=== PATIENT | female | born 1960 | race Caucasian/White ===

== ENCOUNTER → 2016-11-22 | Outpatient (CLI) | payer MEDICARE, OTHER ==
[2016-11-22 16:11] LABS: Blood Urea Nitrogen 25 mg/dL (7-17); Non-African American GFR(MDRD) >60 (>60 ml/min/1.73 sqM)
--- NOTE | 2016-11-22 18:56 | CT ---
EXAMINATION TYPE: CT abdomen pelvis w con DATE OF EXAM: 11/22/2016 5:30 PM COMPARISON: NONE HISTORY: PT STATES OF HERNIA AT INCISION SITE ON LOWER ABD. CT DLP: 1842.2 mGycm Automated exposure control for dose reduction was used. TECHNIQUE: Helical acquisition of images was performed from the lung bases through the pelvis. CONTRAST: Performed with Oral Contrast and with IV Contrast, patient injected with 100 mL of Omnipaque 300. FINDINGS: Lung bases are clear of consolidation. There is no pleural effusion. There is a small hiatal hernia. Liver spleen pancreas appear normal. There are clips from cholecystectomy. There is no adrenal mass. Kidneys show satisfactory contrast opacification. There is no hydronephrosis. There is no retroperito kala adenopathy. Abdominal aorta is atheromatous. There is no ascites. There is a 14 x 15 cm subcutaneous fluid collection over the lower anterior abdomen in the midline. T he fluid has low density. There is mild adjacent thickening of the anterior abdominal wall. Bladder distends smoothly. There is no sign of a pelvic mass. There is no evidence of a bowel obstruc tion. I see no intestinal wall thickening. There are no dilated loops. The bony structures are intact . IMPRESSION: THERE IS A LARGE SUBCUTANEOUS LOW-DENSITY FLUID COLLECTION THAT IS SUPERFICIAL TO THE ANTERIOR ABDOMI NAL WALL AND CONSISTENT WITH A SEROMA OR CHRONIC HEMATOMA. THERE IS MILD THICKENING OF THE ADJACENT A NTERIOR ABDOMINAL WALL CONSISTENT WITH POSTSURGICAL CHANGES. NO EVIDENCE OF A BOWEL OBSTRUCTION OR HE RNIA SAC.
== END | disposition home or self-care (01) ==
LOC: RADCTMAIN 15:20
PROVIDERS: ATTEND Surgery
DX: K31.89 Other diseases of stomach and duodenum (principal)
CPT/HCPCS: 82565; 84520; 74177; 36415; Q9967

== ENCOUNTER → 2017-02-26 | Outpatient (CLI) | payer MEDICARE, OTHER ==
[2017-02-26 17:13] LABS: Blood Urea Nitrogen 23 mg/dL (7-17); Non-African American GFR(MDRD) >60 (>60 ml/min/1.73 sqM)
--- NOTE | 2017-02-27 08:28 | CT ---
EXAMINATION TYPE: CT abdomen pelvis w con DATE OF EXAM: 02/26/2017 6:34 PM HISTORY: RLQ pain for 2 days. Postop seroma generalized abdominal pain per order. CT DLP: 1911.1mGycm Automated Exposure Control for Dose Reduction was Utilized. CONTRAST: CT scan of the abdomen and pelvis is performed with IV Contrast, patient injected with 100 mL of Omni paque 300. COMPARISON: CT abdomen and pelvis November 22, 2016. FINDINGS: LUNG BASES: Dense mitral annulus or valvular calcifications are redemonstrated. Calcifications in the dominant RCA distribution are again seen. LIVER/GB: Cholecystectomy clips are redemonstrated. Liver remains diffusely low dense consistent wit h fatty infiltration. PANCREAS: No significant abnormality is seen. SPLEEN: No significant abnormality is seen. ADRENALS: No significant abnormality is seen. KIDNEYS: No significant abnormality is seen. BOWEL: The oral contrast reaches level of the transverse colon. There is no suspicious small or large bowel dilatation. UTERUS/ADNEXA: Uterus is surgically absent or markedly atrophic in appearance. Multiple surgical clip s and phleboliths in the pelvis are redemonstrated. LYMPH NODES: No greater than 1cm abdominal or pelvic lymph nodes are appreciated. OSSEOUS STRUCTURES: Multilevel spurring in the lower thoracic spine is present. OTHER: There is mild to moderate calcified plaque of the abdominal aorta and iliac branch vessels. In the pelvic abdominal wall there remains nonspecific walled off fluid collection. This collection m easures 7.3 cm AP by 13.5 cm transverse by 14.0 cm craniocaudal dimension on axial image 73 and coron al image 20, it measured 9.7 x 14.2 x 15.4 cm on prior exam axial image 76 and coronal image 18. IMPRESSION: Persistent nonspecific moderate to large size anterior lower abdominal/pelvic wall subcut aneous fluid collection slightly diminished in size from prior exam favor postsurgical seroma remains present.
== END ==
LOC: RADCTMAIN 16:34
PROVIDERS: ATTEND Surgery
DX: R10.84 Generalized abdominal pain (principal); T88.8XXD Other specified complications of surgical and medical care, not elsewhere classified, subsequent encounter
CPT/HCPCS: 82565; 84520; 74177; 36415; Q9967

== ENCOUNTER 2017-03-04 10:52 | Day surgery (SDC) | payer MEDICARE, OTHER ==
[2017-03-04 11:21] VITALS: RESP 18; TEMP 97.9
[2017-03-04 12:53] VITALS: BP 140/67; PULSE 94
--- NOTE | 2017-03-04 15:00 | US ---
Discontinued seroma drainage tube placement HISTORY: Seroma Real-time ultrasound performed at the level of patient's symptomatology in the lower anterior abdomin al region. There is a focus in the subcutaneous fat measuring 13.7 cm and shows multiple loculated ar eas compatible with organized seroma. IMPRESSION: Patient is unlikely to benefit from drainage tube placement. Multilocular fluid collectio n is noted. No seroma drainage tube placement at this time.
== END 2017-03-04 12:45 | disposition home or self-care (01) ==
LOC: RADPROMAIN 10:52 → EDSTATUS 11:00 → RADPROMAIN 12:45
PROVIDERS: ATTEND Surgery
DX: T88.8XXA Other specified complications of surgical and medical care, not elsewhere classified, initial encounter (principal); X58.XXXA Exposure to other specified factors, initial encounter
CPT/HCPCS: 49405; 76942

== ENCOUNTER 2017-07-24 06:43 | Day surgery (SDC) | payer MEDICARE, OTHER ==
[~2017-07-24 06:43] MED LIST: DEXAMETHASONE SOD PHOSPHATE 10 MG/ML 1 ML VIAL IV ONE; HEPARIN SODIUM,PORCINE 5,000 UNIT/ML 1 ML VIAL SQ ONE; HYDROmorphone 1 MG/ML 1 ML SYRINGE IVP PRN; ONDANSETRON 4 MG/2 ML VIAL IVP ONE; Pre Op ABX Message 1 EACH MISC MISCELLANE ONE
[2017-07-24] MEDS: LACTATED RINGERS 1,000 ML IV SCH (07:30)
[2017-07-24] MEDS ORDERED: LIDOCAINE 1% 20 ML VIAL (10MG/ML) FOR IV START INTRADERMA ONE (07:30)
[2017-07-24 07:40] LABS: Glucose,Whole Blood 236 mg/dL (75-99)
--- NOTE | 2017-07-24 08:06 | P.GSHP ---
History of Present Illness H&P Date: 07/24/17 Chief Complaint: Panniculus, incisional hernia This is a 56-year-old female referred from Dr. Eliu Woods. Patient presents today for panniculectomy and repair of incisional hernia. Patient has a well- formed panniculus which drapes to her mid thigh. She's had problems with chronic skin irritation and rashes. She's also had a seroma develop within her panniculus. Past Medical History Past Medical History: Asthma, Coronary Artery Disease (CAD), Cancer, Chest Pain / Angina, Diabetes Mellitus, GERD/Reflux, Hyperlipidemia, Hypertension, Sleep Apnea/CPAP/BIPAP, Thyroid Disorder Additional Past Medical History / Comment(s): occ migraines, heart murmer, varicose veins, hiatal hernia, "rheumatic bronchia asthma", hx skin cancer on face, History of Any Multi-Drug Resistant Organisms: None Reported Past Surgical History: Bladder Surgery, Bowel Resection, Section, Cholecystectomy, Heart Catheterization With Stent, Hernia Repair, Hysterectomy, Tonsillectomy Additional Past Surgical History / Comment(s): 09/13/15 Repair of recurrent incarcerated hernia with mesh, multiple laparotomies, benign abdominal mass removed, large cyst removed between bladder and ovary-benign, temporary colostomy & then reversal, total 9 stents-done several yrs. ago, bladder suspension x2, bilateral cataract removal with lens implants Past Anesthesia/Blood Transfusion Reactions: Previous Problems w/ Anesthesia Additional Past Anesthesia/Blood Transfusion Reaction / Comment(s): ended up on ventilator for almost week after a very long hernia surg. Pt received blood after a . She then had "enzyme" problems with her blood for 7 yrs(now resolved per pt). pt states "shallow breather" Date of Last Stent Placement:: unknown Smoking Status: Former smoker - Past Family History Father Family Medical History: Pulmonary Embolus Additional Family Medical History / Comment(s): . Brother(s) Family Medical History: Cancer Mother Family Medical History: Myocardial Infarction (MS) Additional Family Medical History / Comment(s): Mother of a MS at the age of 68 yrs. Medications and Allergies Home Medications Medication Instructions Recorded Confirmed Type Albuterol Sulfate [Proair Hfa] 2 puff INHALATION Q6H PRN 09/12/15 07/24/17 History Cholecalciferol [Vitamin D3] 400 unit PO DAILY 10/26/15 08/30/17 History Levothyroxine Sodium [Synthroid] 112 mcg PO DAILY 09/12/15 07/17/17 History Lisinopril [Zestril] 20 mg PO BID 09/12/15 07/17/17 History Metoprolol Succinate [Toprol XL] 50 mg PO BID 09/12/15 07/17/17 History Mirtazapine [Remeron] 15 mg PO HS 09/12/15 07/17/17 History Montelukast [Singulair] 10 mg PO DAILY 09/12/15 07/17/17 History Aspirin [Aspir-Low] 81 mg PO QAM 04/24/16 07/17/17 History Insulin Degludec [Tresiba 75 units SQ QAM 04/24/16 07/17/17 History Flextouch U-200] Loratadine 10 mg PO DAILY 04/24/16 07/17/17 History Multivitamins, Thera [Multivitamin 1 tab PO DAILY 04/24/16 07/17/17 History (formulary)] [place] 3-6-9 1 cap PO HS 04/24/16 07/17/17 History [place] 3-6-9 2 cap PO QAM 04/24/16 07/17/17 History amLODIPine [Norvasc] 5 mg PO DAILY #30 tab 04/25/16 07/17/17 Rx Insulin Aspart [NovoLOG Flexpen] 0 units SQ TID-W/MEALS 03/01/17 07/17/17 History Calcium Citrate(Dose Unknown) 1 tab PO TID 07/17/17 07/17/17 History Empagliflozin [Jardiance] 25 mg PO QAM 07/17/17 07/17/17 History Ipratropium-Albuterol Nebulize 3 ml INHALATION ACHS PRN 07/17/17 07/24/17 History [Duoneb 0.5 mg-3 mg/3 ml Soln] Lurasidone HCl [Latuda] 20 mg PO DAILY 07/17/17 07/17/17 History lamoTRIgine [LaMICtal] 100 mg PO HS 07/17/17 07/17/17 History sitaGLIPtin [Januvia] 100 mg PO QAM 07/17/17 07/17/17 History Allergies Allergy/AdvReac Type Severity Reaction Status Date / Time acetaminophen [From Vicodin] Allergy Unknown Verified 07/24/17 07:08 amoxicillin Allergy SOB Verified 07/24/17 07:08 ciprofloxacin [From Cipro] Allergy SOB Verified 07/24/17 07:08 ciprofloxacin HCl Allergy SOB Verified 07/24/17 07:08 [From Cipro] clindamycin Allergy Dyspnea Verified 07/24/17 07:08 hydrocodone bitartrate Allergy Unknown Verified 07/24/17 07:08 [From Vicodin] Sulfa (Sulfonamide Allergy Rash/Hives, Verified 07/24/17 07:08 Antibiotics) boils codeine AdvReac HEADACHE Verified 07/24/17 07:08 diazepam [From Valium] AdvReac Unknown Verified 07/24/17 07:08 Surgical - Exam Vital Signs Temp Pulse Resp BP Pulse Ox 98.4 F 59 L 16 107/73 95 07/24/17 07:30 07/24/17 07:30 07/24/17 07:30 07/24/17 07:30 07/24/17 07:30 - General well developed, no distress - Eyes PERRL - ENT normal pinna - Neck no masses - Respiratory normal expansion - Cardiovascular Rhythm: regular - Abdomen Long midline incision scar Abdomen: soft, non tender Hernia: incisional - Integumentary Rash in the infra-pannicular crease. Results - Labs Abnormal Lab Results - Last 24 Hours (Table) 07/24/17 Range/Units 07:25 POC Glucose (mg/dL) 236 H (75-99) mg/dL Assessment and Plan Plan: Panniculus was incisional hernia. Patient will undergo pannicular colectomy and repair of incisional hernia. Patient is aware risk of wound infection and skin necrosis. Patient is aware the risk of possible wound debridement and wound VAC postoperatively.
[2017-07-24] MEDS ORDERED: MIDAZOLAM 2 MG/2 ML VIAL ONE (08:07)
[2017-07-24] MEDS ORDERED: LIDOCAINE 1% INJ 10MG/ML (20 ML MDV) ONE (08:07)
[2017-07-24] MEDS ORDERED: PHENYLEPHRINE-0.9% NACL SYG 1 MG/10 ML SYRINGE ONE (08:07)
[2017-07-24] MEDS ORDERED: GLYCOPYRROLATE 0.2 MG/ML 2 ML VIAL ONE (08:07)
[2017-07-24] MEDS ORDERED: SUCCINYLCHOLINE CHLORIDE VIAL 200 MG/10 ML VIAL IV ONE (08:07)
[2017-07-24] MEDS ORDERED: ROCURONIUM BROMIDE 10 MG/ML 10 ML VIAL IV ONE (08:07)
[2017-07-24] MEDS ORDERED: PROPOFOL 10 MG/ML 20 ML VIAL IV ONE (08:07)
[2017-07-24] MEDS ORDERED: NEOSTIGMINE 1 MG/ML 10 ML VIAL ONE (08:07)
[2017-07-24] MEDS ORDERED: ePHEDrine SULFATE/0.9% NACL/PF 50 MG/5 ML SYRINGE IV ONE (08:07)
[2017-07-24] MEDS ORDERED: fentaNYL (PF) 50 MCG/ML 2 ML AMP ONE (08:07)
[2017-07-24] MEDS ORDERED: SODIUM CHLORIDE 0.9% 0 ML with ceFAZolin 2,000 MG IV ONE ×4 (08:25)
[2017-07-24] MEDS ORDERED: LACTATED RINGERS 1,000 ML IV ONE ×2 (09:25→10:38)
[2017-07-24] MEDS ORDERED: SODIUM CHLORIDE 0.9% 50 ML with ceFAZolin 1,000 MG IV ONE ×2 (09:26)
[2017-07-24] MEDS ORDERED: HYDROmorphone 1 MG/ML 1 ML SYRINGE IVP PRN (10:38)
[2017-07-24] MEDS ORDERED: PROMETHAZINE 25 MG TAB PO PRN (10:38)
[2017-07-24] MEDS ORDERED: NALOXONE 0.4 MG/ML 1 ML VIAL IV PRN (10:38)
[2017-07-24] MEDS ORDERED: ONDANSETRON 4 MG/2 ML VIAL IVP PRN (10:38)
[2017-07-24] MEDS ORDERED: HYDROcodone/APAP 5-325MG 1 EACH TAB PO PRN (10:38)
[2017-07-24] MEDS ORDERED: INSULIN LISPRO (humaLOG) 300 UNIT/3 ML VIAL SQ ONE (11:13)
[2017-07-24 11:17] LABS: Glucose,Whole Blood 272 mg/dL (75-99)
[2017-07-24] MEDS ORDERED: HYDROmorphone 1 MG/ML 1 ML SYRINGE IVP ONE (11:20)
[2017-07-24] MEDS ORDERED: KETOROLAC 30 MG/ML 1 ML VIAL IVP ONE (11:32)
[2017-07-24] MEDS ORDERED: ceFAZolin 2 GM in SODIUM CHLORIDE 0.9% 100 ML IVPB ONE (11:38)
[2017-07-24] MEDS: KETOROLAC 30 MG/ML 1 ML VIAL IVP SCH ×3 (12:11→21:35)
[2017-07-24 14:45] VITALS: BMI 39.6
--- NOTE | 2017-07-24 17:31 | P.OP ---
Date of Procedure: 07/24/17 Preoperative Diagnosis: Panniculus Incisional hernia Postoperative Diagnosis: Panniculus Seroma Incisional hernia Procedure(s) Performed: Panniculectomy Repair of incisional hernia Excision of mesh abdominal wall Implants: Anesthesia: NAIMAA Surgeon: Bandar Larkin Estimated Blood Loss (ml): 100 Pathology: other (Panniculus, mesh) Condition: stable Disposition: PACU Indications for Procedure: Operative Findings: Description of Procedure: The patient's placed the operative table in the supine position. Her abdomen was prepped and draped in sterile fashion. Patient had a large panniculus. Is also evidence of incisional hernia. The infra-pannicular incision was created. Then using cautery and sharp dissection the subcutaneous tissue divided down level of fascia. At this point panniculus was dissected free from the abdominal wall. Using cautery and Harmonic scissors the skin and fat was elevated off of the fascia. The patient had a large seroma cavity within her panniculus. This appeared to be related to her previous incisional hernia. The dissection was extended cephalad. The dissection was extended to the xiphoid superiorly and the costal margins laterally. Several small perforating vessels were divided using Harmonic scissors. At this point the redundant skin was marked and then the superior pannicular incision was created and then using cautery and sharp dissection the panniculus was excised. The patient appeared to have some mesh that was adherent into her seroma cavity. The mesh was trimmed with sharp dissection and sent to pathology. At this point there was a small incisional hernia. This repaired with 0 PDS suture. The CHOLO drains were placed through separate stab wound incisions and exited through the pubic area Nataly's fascia closed with 0 Vicryl suture. The skin was closed marlena. Patient top she will well and was sent to recovery in stable condition.
[2017-07-24 17:48] LABS: Glucose,Whole Blood 221 mg/dL (75-99)
[2017-07-24] MEDS ORDERED: IPRATROPIUM-ALBUTEROL 3 ML NEB INHALATION PRN (17:55)
[2017-07-24] MEDS ORDERED: ALBUTEROL NEBULIZED 2.5 MG/3 ML INHALATION PRN (17:55)
[2017-07-24] MEDS: INSULIN LISPRO (humaLOG) 300 UNIT/3 ML VIAL SQ SCH ×2 (18:12→20:34)
[2017-07-24] MEDS: LISINOPRIL 20 MG TAB PO SCH (20:34)
[2017-07-24] MEDS: METOPROLOL SUCCINATE (ER) 50 MG TAB.ER.24H PO SCH (20:34)
[2017-07-24] MEDS: lamoTRIgine 100 MG TAB PO SCH (20:34)
[2017-07-24] MEDS: MIRTAZAPINE 15 MG TAB PO SCH (20:34)
[2017-07-24 20:54] LABS: Glucose,Whole Blood 199 mg/dL (75-99)
[2017-07-24] MEDS: DOCUSATE 100 MG CAP PO SCH (23:08)
[2017-07-25] MEDS: ACETAMINOPHEN TAB 325 MG TAB PO PRN ×2 (01:47→20:32)
[2017-07-25] MEDS: KETOROLAC 30 MG/ML 1 ML VIAL IVP SCH ×4 (03:58→21:48)
[2017-07-25 04:01] VITALS: RESP 16
[2017-07-25] MEDS: LEVOTHYROXINE 112 MCG TAB PO SCH (05:39)
[2017-07-25] MEDS: LACTATED RINGERS 1,000 ML IV SCH (06:47)
[2017-07-25 07:12] LABS: Glucose,Whole Blood 159 mg/dL (75-99)
[2017-07-25] MEDS: INSULIN LISPRO (humaLOG) 300 UNIT/3 ML VIAL SQ SCH ×4 (07:33→20:33)
[2017-07-25] MEDS: METOPROLOL SUCCINATE (ER) 50 MG TAB.ER.24H PO SCH ×2 (08:20→20:32)
[2017-07-25] MEDS: ENOXAPARIN 40 MG/0.4 ML SYRINGE SQ SCH (08:20)
[2017-07-25] MEDS: ASPIRIN 81 MG CHEW PO SCH (08:21)
[2017-07-25] MEDS: LORATADINE 10 MG TAB PO SCH (08:21)
[2017-07-25] MEDS: DOCUSATE 100 MG CAP PO SCH ×2 (08:21→20:33)
[2017-07-25] MEDS: LINAGLIPTIN 5 MG TABLET PO SCH (08:21)
[2017-07-25] MEDS: LURASIDONE 40 MG TAB PO SCH (08:21)
[2017-07-25] MEDS: LISINOPRIL 20 MG TAB PO SCH ×2 (08:22→20:32)
[2017-07-25] MEDS: amLODIPine 5 MG TAB PO SCH (08:22)
[2017-07-25] MEDS: MONTELUKAST 10 MG TAB PO SCH (08:22)
[2017-07-25] MEDS ORDERED: PANTOPRAZOLE 40 MG/10 ML VIAL IV SCH (09:00)
[2017-07-25] MEDS ORDERED: NON-FORMULARY DRUG (Empagliflozin [Jardiance] 25 MG) PO SCH (09:00)
[2017-07-25 11:16] LABS: Hemoglobin A1C 8.8 % (4.2-6.1)
[2017-07-25 11:37] LABS: Glucose,Whole Blood 249 mg/dL (75-99)
[2017-07-25] MEDS ORDERED: HYDROmorphone 1 MG/ML 1 ML SYRINGE IVP PRN (12:32)
--- NOTE | 2017-07-25 12:48 | P.PN ---
Subjective 56-year-old female being seen on rounds this morning currently sitting up in a chair. Has been up to the bathroom and back. Patient states pain medication effective for pain control. States no nausea no vomiting no frequent stooling urinating no difficulty indwelling Moya catheter has been removed 2 Ulises-Eckert drains right and left lower abdomen moderate amount of bloody drainage noted in the CHOLO bulbs Patient is postop July 24 Panniculectomy, repair of incisional hernia, excision of mesh abdominal wall for Panniculus and seroma. Did note the patient is diabetic hemoglobin A1c 8.8 blood sugars ranging 159 12/20/1949. Currently on Accu-Chek with sliding scale protocol being utilized. Objective - Vital Signs Vital signs: Vital Signs Temp 98.2 F 07/25/17 07:00 Pulse 79 07/25/17 07:00 Resp 16 07/25/17 07:00 BP 119/68 07/25/17 07:00 Pulse Ox 94 L 07/25/17 07:00 Intake & Output 07/24/17 07/25/17 07/25/17 18:59 06:59 18:59 Intake Total 3000 Output Total 440 1370 70 Balance 2560 -1370 -70 Weight 108.1 kg Intake: IV 2000 Oral 1000 Output: Drainage 40 70 70 Left Lower Abdomen 20 70 20 Right Lower Abdomen 20 50 Urine 200 1300 Estimated Blood Loss 200 Other: Voiding Method Indwelling Catheter Indwelling Catheter Indwelling Catheter - Exam Physical exam 56-year-old female sitting up in a chair pleasant cooperative oriented 3 reports no nausea vomiting states pain medication effective for pain control Lungs essentially clear adequate air movement on room air sats are 94% Heart S1-S2 audible regular Abdomen abdominal binder in place dressing at surgical site dry. 2 CHOLO drains right and left lower abdomen moderate amount of drainage noted in the CHOLO bulbs soft not distended bowel tones present voiding no difficulty no stool no reports of nausea vomiting tolerating diet Extremities no edema noted to the bilateral lower extremities - Labs Labs: Abnormal Lab Results - Last 24 Hours (Table) 07/24/17 07/24/17 07/25/17 Range/Units 17:26 20:32 06:39 POC Glucose (mg/dL) 221 H 199 H (75-99) mg/dL Hemoglobin A1c 8.8 H (4.2-6.1) % 07/25/17 07/25/17 Range/Units 07:10 11:33 POC Glucose (mg/dL) 159 H 249 H (75-99) mg/dL Hemoglobin A1c (4.2-6.1) % Assessment and Plan Plan: Impression Postop July 24 Panniculectomy, excision of mesh abdominal wall and a repair of incisional hernia. Incisional hernia with panniculus with a large Seroma Type 2 diabetes uncontrolled hemoglobin A1c 8.8 Obesity BMI 39 Plan Continue postop surgical care Pain control Monitor Accu-Chek blood sugars attempt to tighten glycemic control defer to medicine service to address community educator reinforce diabetic education DVT and GI prophylaxis Resume home meds as appropriate If blood sugars improve anticipate discharge in the next 24 hours The above impression and plan of care have been discussed and directed by signing physician. Aleena Andrea nurse practitioner acting as scribe for signing physician.
[2017-07-25 16:27] LABS: Glucose,Whole Blood 191 mg/dL (75-99)
[2017-07-25] MEDS: MIRTAZAPINE 15 MG TAB PO SCH (20:32)
[2017-07-25] MEDS: lamoTRIgine 100 MG TAB PO SCH (20:32)
[2017-07-25 20:44] LABS: Glucose,Whole Blood 176 mg/dL (75-99)
[2017-07-25] MEDS ORDERED: INSULIN DETEMIR 100 UNIT/ML 10 ML VIAL SQ ONE (21:00)
[2017-07-26] MEDS: ACETAMINOPHEN TAB 325 MG TAB PO PRN (01:40)
[2017-07-26] MEDS: KETOROLAC 30 MG/ML 1 ML VIAL IVP SCH (04:33)
[2017-07-26] MEDS: LEVOTHYROXINE 112 MCG TAB PO SCH (04:48)
[2017-07-26 07:16] LABS: Glucose,Whole Blood 190 mg/dL (75-99)
[2017-07-26] MEDS: LACTATED RINGERS 1,000 ML IV SCH (07:18)
[2017-07-26] MEDS ORDERED: PANTOPRAZOLE 40 MG TABLET PO SCH (07:30)
[2017-07-26 07:44] VITALS: BP 159/93; PULSE 62; TEMP 97.7
[2017-07-26] MEDS: INSULIN LISPRO (humaLOG) 300 UNIT/3 ML VIAL SQ SCH ×2 (08:03→12:56)
[2017-07-26] MEDS: amLODIPine 5 MG TAB PO SCH (08:04)
[2017-07-26] MEDS: ASPIRIN 81 MG CHEW PO SCH (08:04)
[2017-07-26] MEDS: LURASIDONE 40 MG TAB PO SCH (08:05)
[2017-07-26] MEDS: LINAGLIPTIN 5 MG TABLET PO SCH (08:05)
[2017-07-26] MEDS: LISINOPRIL 20 MG TAB PO SCH (08:05)
[2017-07-26] MEDS: ENOXAPARIN 40 MG/0.4 ML SYRINGE SQ SCH (08:05)
[2017-07-26] MEDS: LORATADINE 10 MG TAB PO SCH (08:05)
[2017-07-26] MEDS: DOCUSATE 100 MG CAP PO SCH (08:05)
[2017-07-26] MEDS: METOPROLOL SUCCINATE (ER) 50 MG TAB.ER.24H PO SCH (08:06)
[2017-07-26] MEDS: MONTELUKAST 10 MG TAB PO SCH (08:06)
[2017-07-26] MEDS ORDERED: traMADol 50 MG TAB PO PRN (11:20)
[2017-07-26 11:36] LABS: Glucose,Whole Blood 236 mg/dL (75-99)
--- NOTE | 2017-07-26 12:52 | P.DS ---
Providers Expected date of discharge: 07/26/17 Attending physician: Bandar Lance Consults: 07/24/17 10:38 Consult Physician Routine Consulting Provider: Eliu Doss Consult Reason/Comments: Medical management Do you want consulting provider notified?: Yes Primary care physician: Eliu Doss [facility] Course: 56-year-old female referred from primary careprovider Dr. Eliu doss for panniculectomy and repair of incisional hernia this was done on July 24 also had a seroma develop within her panniculus. Patient was followed throughout the hospitalization by Dr. Eliu Doss for medical management. Additionally the elementary educator did see the patient. Patient does have type 2 diabetes insulin requiring with a hemoglobin A1c of 8.8. It was reinforced to the patient the need to tighten up glycemic control which would enhance wound healing. On the day of discharge blood sugars were optimize patient was felt to be hemodynamically stable and appropriate to proceed with a discharge to home Impression Postop July 24 Panniculectomy, excision of mesh abdominal wall and a repair of incisional hernia. Incisional hernia with panniculus with a large Seroma Type 2 diabetes uncontrolled hemoglobin A1c 8.8 Obesity BMI 39 The above impression and plan of care have been discussed and directed by signing physician. Aleena Andrea nurse practitioner acting as scribe for signing physician. Plan - Discharge Summary New Discharge Prescriptions: New traMADol HCl [Ultram] 50 mg PO QID PRN #30 tab PRN Reason: Analgesia Continue Levothyroxine Sodium [Synthroid] 112 mcg PO DAILY Cholecalciferol [Vitamin D3] 400 unit PO DAILY Albuterol Sulfate [Proair Hfa] 2 puff INHALATION Q6H PRN PRN Reason: Shortness Of Breath Montelukast [Singulair] 10 mg PO DAILY Mirtazapine [Remeron] 15 mg PO HS Metoprolol Succinate [Toprol XL] 50 mg PO BID Lisinopril [Zestril] 20 mg PO BID Multivitamins, Thera [Multivitamin (formulary)] 1 tab PO DAILY Loratadine 10 mg PO DAILY Aspirin [Aspir-Low] 81 mg PO QAM Insulin Degludec [Tresiba Flextouch U-200] 75 units SQ QAM [place] 3-6-9 1 cap PO HS [place] 3-6-9 2 cap PO QAM amLODIPine [Norvasc] 5 mg PO DAILY #30 tab Insulin Aspart [NovoLOG Flexpen] 0 units SQ TID-W/MEALS lamoTRIgine [LaMICtal] 100 mg PO HS Lurasidone HCl [Latuda] 20 mg PO DAILY sitaGLIPtin [Januvia] 100 mg PO QAM Empagliflozin [Jardiance] 25 mg PO QAM Calcium Citrate(Dose Unknown) 1 tab PO TID Ipratropium-Albuterol Nebulize [Duoneb 0.5 mg-3 mg/3 ml Soln] 3 ml INHALATION ACHS PRN PRN Reason: sob Discharge Medication List Albuterol Sulfate [Proair Hfa] 2 puff INHALATION Q6H PRN 09/12/15 [History] Cholecalciferol [Vitamin D3] 400 unit PO DAILY 09/12/15 [History] Levothyroxine Sodium [Synthroid] 112 mcg PO DAILY 09/12/15 [History] Lisinopril [Zestril] 20 mg PO BID 09/12/15 [History] Metoprolol Succinate [Toprol XL] 50 mg PO BID 09/12/15 [History] Mirtazapine [Remeron] 15 mg PO HS 09/12/15 [History] Montelukast [Singulair] 10 mg PO DAILY 09/12/15 [History] Aspirin [Aspir-Low] 81 mg PO QAM 04/24/16 [History] Insulin Degludec [Tresiba Flextouch U-200] 75 units SQ QAM 04/24/16 [History] Loratadine 10 mg PO DAILY 04/24/16 [History] Multivitamins, Thera [Multivitamin (formulary)] 1 tab PO DAILY 04/24/16 [History ] [place] 3-6-9 1 cap PO HS 04/24/16 [History] [place] 3-6-9 2 cap PO QAM 04/24/16 [History] amLODIPine [Norvasc] 5 mg PO DAILY #30 tab 04/25/16 [Rx] Insulin Aspart [NovoLOG Flexpen] 0 units SQ TID-W/MEALS 03/01/17 [History] Calcium Citrate(Dose Unknown) 1 tab PO TID 07/17/17 [History] Empagliflozin [Jardiance] 25 mg PO QAM 07/17/17 [History] Ipratropium-Albuterol Nebulize [Duoneb 0.5 mg-3 mg/3 ml Soln] 3 ml INHALATION ACHS PRN 07/17/17 [History] Lurasidone HCl [Latuda] 20 mg PO DAILY 07/17/17 [History] lamoTRIgine [LaMICtal] 100 mg PO HS 07/17/17 [History] sitaGLIPtin [Januvia] 100 mg PO QAM 07/17/17 [History] traMADol HCl [Ultram] 50 mg PO QID PRN #30 tab 07/26/17 [Rx] Follow up Appointment(s)/Referral(s): [facility], [NON-STAFF] - Bandar Lance MD [STAFF PHYSICIAN] - 1 Week Eliu Doss MD [Primary Care Provider] - 1 Week Activity/Diet/Wound Care/Special Instructions: Wear abdominal binder when up with activity Ulises-Eckert drain instructions to be provided with wound care No lifting over 10 pounds May shower No tub baths until seen in follow-up visit with Dr. lance Discharge Disposition: HOME WITH HOME HEALTH SERVICES
== END 2017-07-26 16:31 | disposition home health service (06) ==
LOC: OR 06:43 → 3SUR 10:36 → OR 07-26 16:31
PROVIDERS: ATTEND Surgery
DX: K43.2 Incisional hernia without obstruction or gangrene (principal); E65 Localized adiposity; I25.10 Atherosclerotic heart disease of native coronary artery without angina pectoris; I10 Essential (primary) hypertension; G47.33 Obstructive sleep apnea (adult) (pediatric); D11.9 Benign neoplasm of major salivary gland, unspecified; E07.9 Disorder of thyroid, unspecified; K21.9 Gastro-esophageal reflux disease without esophagitis; Z85.828 Personal history of other malignant neoplasm of skin; L76.82 Other postprocedural complications of skin and subcutaneous tissue; Z95.5 Presence of coronary angioplasty implant and graft; Z79.84 Long term (current) use of oral hypoglycemic drugs; Z79.82 Long term (current) use of aspirin; Z79.4 Long term (current) use of insulin; Z79.899 Other long term (current) drug therapy; Z88.1 Allergy status to other antibiotic agents; Z88.5 Allergy status to narcotic agent; Z88.0 Allergy status to penicillin; Z88.2 Allergy status to sulfonamides; Z88.8 Allergy status to other drugs, medicaments and biological substances
CPT/HCPCS: 49560; 17999; 20520; 94760; 88304; 83036; J2250; J0330; J1644; J1100; J2710; J0690 ×2; J2405; J2001; J1650 ×2; J3010; J1885 ×3; J1170; J2370; J2704; C9113

== ENCOUNTER → 2019-03-31 | Outpatient (CLI) | payer MEDICARE, OTHER ==
[2019-03-31 20:16] LABS: LDL Cholesterol,Calculated 113.2 mg/dL (0.0-131.0); VLDL Calculation 55.8 mg/dL (5.00-40.00)
[2019-04-01 14:59] LABS: APTT 47 Sec(s) (<43); APTT 1:1 Mix 39 Sec(s) (<43); DRVVT 1:1 Mix 43 Sec(s) (<44); Dilute Russell Viper Venom 63 Sec(s) (<44)
== END | disposition home or self-care (01) ==
LOC: LABWHC1 12:35
PROVIDERS: ATTEND Family Medicine
DX: I10 Essential (primary) hypertension (principal); E11.9 Type 2 diabetes mellitus without complications; Z79.899 Other long term (current) drug therapy
CPT/HCPCS: 36415; 80061; 85613; 85652; 85730; 85732; 86038